=== PATIENT | male | born 1995 | race Caucasian/White ===

== ENCOUNTER 2022-12-17 18:58 | Emergency (ER) | payer OTHER, SELFPAY ==
[2022-12-17 19:21] VITALS: BP 122/56; PULSE 78; RESP 20; TEMP 36.4; O2SAT 100; BMI 33.4
--- NOTE | 2022-12-17 19:26 | DI.RAD.S_ITS ---
PROCEDURE: XR KNEE LT 3V INDICATIONS: felt pop pain landed wrong TECHNIQUE: 3 views of the knee were acquired. COMPARISON: None. FINDINGS: Bones: No fractures or dislocations. No suspicious bony lesions. Soft tissues: possible small joint effusion. No suspicious soft tissue calcifications. IMPRESSION: No acute fracture visualized. Possible small nonspecific joint effusion. If symptoms persist, follow-up radiographs and/or CT or MRI may be helpful for further evaluation. Dictated by: Jasson Yates M.D. on 12/17/2022 at 20:42 Approved by: Jasson Yates M.D. on 12/17/2022 at 20:43
--- NOTE | 2022-12-17 20:38 | ED.LOWEXIN ---
HPI - Extremity Injury (Lower) General Chief Complaint: Extremity Injury, Lower Stated Complaint: lt. pain/fell heard a pop Time Seen by Provider: 12/17/22 20:08 Source: family Mode of arrival: Ambulatory History of Present Illness HPI Narrative: 27-year-old male nonsmoker with noncontributory medical history presents with a friend and a chief complaint of an accidental injury to his left knee just prior to arrival. He was playing volleyball and jumped up, when he came down he landed awkwardly while twisting his left knee. He felt immediate pain along the medial aspect in heard 1 or 2 pops. In the aftermath he is had pain with ambulation and improvement with rest. He denies any numbness, tingling or weakness. He denies the sensation that his knee is unstable. He denies any head neck or back pain and has no hip, ankle or foot injury. He denies numbness, tingling or weakness Related Data Allergies Allergy/AdvReac Type Severity Reaction Status Date / Time No Known Drug Allergies Allergy Verified 12/17/22 19:25 Review of Systems Review of Systems Narrative: GENERAL: Denies chills, fatigue, malaise, fever, sweats. HEENT: Denies sinus pain, ear pain, sore throat, difficulty swallowing, dizziness. RESPIRATORY: Denies dyspnea, cough, wheezing, hemoptysis, sputum. CARDIOVASCULAR: Denies chest pain, palpitations, orthopnea, edema, GASTROINTESTINAL: Denies nausea, vomiting, abdominal pain, diarrhea, constipation, melena. : Denies dysuria, frequency, incontinence, hematuria, urinary retention. MUSCULOSKELETAL: See HPI SKIN: Denies rash, skin lesions, or other NEUROLOGIC: Denies weakness, headache, numbness, change in speech, confusion, seizures, incoordination. PSYCHIATRIC: No concerning psychosocial issues. 12 point review of systems is negative except for those stated above Patient History Social History Smoking Status: Never smoker Smoking Status: Never smoker Substance Use Type: does not use Exam Narrative Exam Narrative: GEN: AOx3 and in mild distress EYES: Pupils are equal, round, and reactive to light and accommodation. Extraoccular muscles are intact bilaterally. There is no subconjunctival hemorrhage or exudate. CHEST: Lungs are clear to auscultation bilaterally and free of wheezes, rales, or rhonchi. Heart rate is regular rhythm, there are no murmurs, clicks, rubs, or gallops. There is no chest wall tenderness. ABD: Abdomen is soft and nontender. There is no guarding or rebound. Bowel sounds are normal in all 4 quadrants. There is no mass or organomegaly. EXT: Full but painful range of motion of left knee with minimal effusion, no obvious ligamentous instability, negative China's, some pain along medial joint line with valgus stress, but no gapping. SKIN: Warm, pink, and dry. No erythema or rash Initial Vital Signs Initial Vital Signs: Vital Signs Temperature 97.6 F 12/17/22 19:21 Pulse Rate 78 12/17/22 19:21 Respiratory Rate 20 12/17/22 19:21 Blood Pressure 122/56 L 12/17/22 19:21 Pulse Oximetry 100 12/17/22 19:21 Oxygen Delivery Method 12/17/22 19:21 Procedures Orthopedic Splinting/Casting Injury #1: Side: left Lower Extremity Injury Location: knee Lower Extremity Immobilizer: knee immobilizer Other Orthopedic Equipment: crutches Post splinting neuro exam: intact Post splinting vascular exam: intact Placed by: Nursing Course Orders Ordered: ED Orders 12/17/22 19:26 XR knee LT 3V Stat Vital Signs Vital signs: Vital Signs - 8 hr 12/17/22 19:21 Temperature 97.6 F Pulse Rate 78 Respiratory Rate 20 Blood Pressure 122/56 L Pulse Oximetry 100 Oxygen Delivery Method Room Air MDM - Extremity Injury (Lower) MDM Narrative Medical decision making narrative: [27-year-old male with left knee pain after volleyball injury] Multiple etiologies for patient's symptoms considered including, but not limited to: [Sprain, strain, meniscal tear, ACL injury, fracture] Prior Charts reviewed: Not available Imaging reviewed: No fracture or dislocation Patient with left knee pain after twisting injury associated with volleyball injury, pain with ambulation, no ligamentous instability or significant effusion. Imaging suggest against fracture or dislocation. Negative China's and minimal effusion suggest against ACL injury. Some pain with Mckenna's and valgus stress suggest potential of MCL or meniscal injury. Findings and discharge diagnosis discussed with patient/family followed by verbalization of understanding Return precautions discussed with patient/family whom verbalize understanding of diagnosis and plan Discharge Plan Departure Patient Disposition: Home Clinical Impression: Internal derangement of knee Qualifiers: Laterality: left Qualified Code(s): M23.92 - Unspecified internal derangement of left knee Activity Restrictions/Additional Instructions: *You have been diagnosed with [left knee injury. Your exam and xray are reassuring and there is no significant abnormality to suggest fracture or dislocation] *What to do: *Please continue to take your regular medications as directed. [ ] New medication prescriptions sent to your pharmacy: [ ] [ ] New medication written as a paper prescription [x] Tylenol and occasional Motrin for pain *Please follow up with [ Beatris] of [facility] in 2-3 days, call for an appointment. Let them know you were seen in the Emergency Department and that we ask that you be seen in follow up. We will electronically transmit a record of today's note if your PCP is in our system *Return to Emergency Department if you should have any new, worsening or concerning symptoms, such as [worsening pain, significant swelling, cold extremities, numbness, tingling, weakness or other bothersome symptoms Weight-bearing with crutches as tolerated Referrals: Fadia Spear MD [Physician] - Stand Alone Forms: Patient Portal/API
[2022-12-17 21:32] VITALS: BP 135/61; PULSE 72; RESP 18; O2SAT 100
== END 2022-12-17 21:34 | disposition home or self-care (01) ==
PROVIDERS: Emergency Provider Emergency Medicine
DX: M23.92 Unspecified internal derangement of left knee (principal); X50.1XXA Overexertion from prolonged static or awkward postures, initial encounter; Y93.68 Activity, volleyball (beach) (court)
CPT/HCPCS: 73562; 99283

== ENCOUNTER → 2023-02-02 13:51 | Outpatient (CLI) | payer OTHER, SELFPAY ==
--- NOTE | 2023-02-02 13:53 | DI.MRI.S_ITS ---
PROCEDURE: MR KNEE LT WO CON INDICATIONS: Pain in left knee TECHNIQUE: Noncontrast sagittal PD fast spin echo and T2 fast spin echo with fat saturation, sagittal 3-D FLASH with fat saturation; coronal T1 spin echo and PD fast spin echo with fat saturation, and axial PD fast spin echo with fat saturation through the knee. COMPARISON: [facility], CR, XR KNEE LT 3V, 12/17/2022, 19:24. FINDINGS: Image quality: Excellent. Menisci: There is vertically oriented linear high T2 signal intensity traversing the peripheral 3rd of the posterior horn medial meniscus, demonstrating inferior articular surface extension, indicating radial tearing. Lateral meniscus is intact. Cruciate ligaments: The anterior cruciate ligament is markedly attenuated and moderately redone at its superior aspect. Posterior cruciate ligament is intact. Medial structures: The medial collateral ligament appears intact. Visualized portions of the pes anserinus tendons appear normal. No abnormal bursal fluid. Lateral structures: The lateral collateral ligament, long and short heads of the biceps femoris tendon appear intact. The popliteus tendon appears normal. Iliotibial band appears normal. Anterior structures: The quadriceps and patellar tendons appear intact. Patellar alignment is normal. No femoral trochlear dysplasia or ventral trochlear prominence. No edema in the infrapatellar fat pad. Bones and cartilage: No displaced fracture. Mild ill-defined T2 signal elevation within the posterior weight-bearing aspect of the lateral tibial plateau. Mild articular cartilage loss diffusely overlies the weight-bearing aspects of the medial femoral condyle and medial tibial plateau. Joint space: There is physiologic knee joint fluid. No Zhu's cyst. Normal appearing synovial plicae are incidentally noted. IMPRESSION: 1. 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 2. Medial meniscal tear. 3. Medial compartment articular cartilage loss. 4. Contusion within the lateral tibial plateau posteriorly. Dictated by: Aurelia Andrews M.D. on 02/04/2023 at 9:07 Approved by: Aurelia Andrews M.D. on 02/04/2023 at 9:09
== END ==
PROVIDERS: Referring Provider Student in an Organized Health Care Education/Training Program; Visit Provider Student in an Organized Health Care Education/Training Program
DX: S83.512A Sprain of anterior cruciate ligament of left knee, initial encounter (principal); S83.242A Other tear of medial meniscus, current injury, left knee, initial encounter; M25.562 Pain in left knee
CPT/HCPCS: 73721